=== PATIENT | male | born 1955 | race Caucasian/White ===

== ENCOUNTER 2020-08-12 09:12 | Emergency (ER) | payer BC ==
[~2020-08-12] VITALS: Ht 180.3 cm; Wt 92.5 kg
[2020-08-12 09:47] LABS: ABSOLUTE NEUTROPHILS 9.5 thou/uL (1.4-8.2); BASOPHILS 0.6 % (0.0-2.0); EOSINOPHILS 0.9 % (0.0-3.0); HEMATOCRIT 46.1 % (42.0-52.0); HEMOGLOBIN 15.6 gm/dL (14.0-18.0); LYMPHOCYTES 14.4 % (24.0-44.0); MCHC 33.8 g/dL (28.0-37.0); MCV 94.8 fL (80.0-100.0); MONOCYTES 7.7 % (1.0-8.0); PLATELET COUNT 352 thou/uL (150-400); POLYS 76.4 % (36.0-66.0); RBC 4.87 mil/uL (4.50-6.00); RDW 12.7 % (10.5-14.5); WBC 12.4 thou/uL (4.0-11.0)
[2020-08-12 09:56] LABS: ANION GAP 8 mmol/L (7-16); BUN 24 mg/dL (7-18); CALCIUM 9.5 mg/dL (8.5-10.1); CHLORIDE 100 mmol/L (98-107); CO2 28 mmol/L (21-32); CREATININE 1.1 mg/dL (0.7-1.3); GLUCOSE 121 mg/dL (74-106); POTASSIUM 3.7 mmol/L (3.5-5.1); SODIUM 136 mmol/L (136-145)
[2020-08-12 10:07] LABS: ALBUMIN 3.8 g/dL (3.4-5.0); LIPASE 89 U/L (73-393); SGOT 12 U/L (15-37); SGPT 22 U/L (16-63); TOTAL BILIRUBIN 0.8 mg/dL (0.2-1.0); TOTAL PROTEIN 7.8 g/dL (6.4-8.2); TROPONIN-I <0.06 ng/mL (<0.06)
[2020-08-12 10:36] LABS: URINE BLOOD NEGATIVE (Negative); URINE CLARITY CLEAR; URINE COLOR YELLOW; URINE GLUCOSE-RANDOM* NEGATIVE (Negative); URINE KETONES 1+ (Negative); URINE LEUKOCYTES-REFLEX NEGATIVE (Negative); URINE NITRITE-REFLEX NEGATIVE (Negative); URINE PROTEIN (DIPSTICK) NEGATIVE (Negative); URINE SPECIFIC GRAVITY >= 1.030 (1.005-1.035)
[2020-08-12 10:39] LABS: ICTOTEST (BILI CONFIRMATORY) Negative (Negative); URINE BILIRUBIN NEGATIVE (Negative)
--- NOTE | 2020-08-12 10:39 | EKG ---
[address] [address] ELECTROCARDIOGRAM REPORT Name: TRISH OLIVER Room #: [facility]#: [id number] Admission: 08/12/20 Attend Phys: Discharge: Date of : 59 Report #: [id number] [facility] ED Test Date: 2020-08-12 Test Time: 09:20:26 Pat Name: TRISH OLIVER Department: Room: Gender: M Efficiency Expert: KAREN : 1955 Requested By: Manjit Alan Order Number: [id number] MD: Yadiel Prieto Measurements Intervals [place] Rate: 108 P: [place]: QRS: -33 QRSD: 95 T: 157 QT: 405 QTc: 543 Interpretive Statements Atrial fibrillation Left axis deviation Borderline repol abnrm, anterolateral leads Prolonged QT interval No previous ECG available for comparison Electronically Signed On 08-12-2020 10:39:31 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 08/12/20 1039 0920 9 Yadiel Prieto MD, FACC /EPI
[2020-08-12 10:50] LABS: AMP/METHAMP Negative (Negative); BARBITURATES Negative (Negative); BENZODIAZEPINES Negative (Negative); COCAINE Negative (Negative); METHADONE Negative (Negative); OPIATES Negative (Negative); PCP Negative (Negative)
[2020-08-12 11:31] VITALS: BP 118/77
== END 2020-08-12 11:33 | disposition short-term general hospital (02) ==
LOC: ER 09:12
PROVIDERS: Emergency Medicine
DX: I62.00 Nontraumatic subdural hemorrhage, unspecified (principal); Z20.822 Contact with and (suspected) exposure to COVID-19; R41.82 Altered mental status, unspecified